=== PATIENT | male | born 1990 | race Caucasian/White ===

== ENCOUNTER 2021-11-02 22:15 | Emergency (ER) | payer MEDICARE, MEDICAID, SELFPAY ==
--- NOTE | ~2021-11-02 | XR_ITS ---
EXAMINATION: XR CHEST CLINICAL INFORMATION: Chest pain COMPARISON: 09/10/2018 TECHNIQUE: Frontal view of the chest was obtained. FINDINGS: Spinal fusion hardware noted. The lungs are well expanded. There is no focal consolidation, edema, or effusion. No pneumothorax. The cardiomediastinal silhouette is within normal limits. No acute osseous abnormality. XR/XR chest 1V IMPRESSION: No acute pulmonary finding.
--- NOTE | 2021-11-02 22:16 | ECG_ITS ---
Test Reason : CP/SPOB Blood Pressure : / mmHG Vent. Rate : 107 BPM Atrial Rate : 107 BPM P-R Int : 130 ms QRS Dur : 094 ms QT Int : 318 ms P-R-T Axes : 086 060 019 degrees QTc Int : 424 ms Sinus tachycardia Nonspecific T wave abnormality Abnormal ECG When compared with ECG of 10-SEP-2018 05:22, ST no longer elevated in Lateral leads T wave inversion now evident in Lateral leads Referred By: Generic ED Physician Electronically Signed By:Mikel Singh
[2021-11-02 22:28] VITALS: BP 144/70; PULSE 100; RESP 20; TEMP 36.8; O2SAT 98; BMI 31.9
[2021-11-02 22:40] LABS: MANUAL DIFF FLAG NO
[2021-11-02 22:41] LABS: Basophils Percent Auto 0.5 % (0-2); Eosinophils Absolute Auto 0.1 X10*3/uL (0.0-0.4); Eosinophils Percent Auto 1.2 % (0-4); Hematocrit 47.8 % (42.0-52.0); Imm Gran Abs Auto 0.02 X10*3/uL (0.00-0.03); Imm Gran Pct Auto 0.3 % (0.0-0.4); Lymphocytes Absolute Auto 1.3 X10*3/uL (1.2-4.9); Lymphocytes Percent Auto 17.7 % (20-40); Mean Corpuscular HGB Conc 33.5 g/dl (31.0-36.0); Mean Corpuscular Hemoglobin 32.1 pg (27.0-33.0); Mean Corpuscular Volume 95.8 fL (80.0-98.0); Mean Platelet Volume 8.6 fL (9.4-12.4); Monocytes Absolute Auto 0.6 X10*3/uL (0.1-1.2); Monocytes Percent Auto 7.7 % (2-11); Neutrophils Absolute Auto 5.5 x10*3/uL (2.0-8.3); Neutrophils Percent Auto 72.6 % (45-73); Platelet Count 226 X10*3/uL (160-400); Red Blood Count 4.99 X10*6/uL (4.60-5.80); White Blood Count 7.5 X10*3/uL (4.8-10.8)
[2021-11-02 22:54] LABS: Anion Gap 14 (12-20); Blood Urea Nitrogen 13 mg/dL (9-16); Calcium 9.5 mg/dL (8.4-10.2); Carbon Dioxide 26 mmol/L (22-29); Chloride 104 mmol/L (96-108); Creatinine Clr Calc Pharmacy 107.9; Estimated Glomerular Filt Rate > 60; Glucose Random 95 mg/dL (60-115); Potassium 3.9 mmol/L (3.3-5.1); Sodium 140 mmol/L (135-145)
[2021-11-02 23:00] LABS: Troponin-I High Sensitivity < 3.5 ng/L (<3.5-35.0)
== END 2021-11-03 03:31 | disposition left against medical advice (07) ==
LOC: HO.ED 11-03 03:29
PROVIDERS: Emergency Provider Emergency Medicine
DX: R07.9 Chest pain, unspecified (principal); R06.02 Shortness of breath; I10 Essential (primary) hypertension; E78.5 Hyperlipidemia, unspecified
CPT/HCPCS: 36415; 71045; 80048; 84484; 85025; 93005; 99283; 99284